=== PATIENT | female | born 1995 ===

== ENCOUNTER 2017-03-07 20:07 | Emergency (ER) | payer SELFPAY ==
[2017-03-07 20:24] VITALS: BMI 23.4
[2017-03-07 20:36] VITALS: BP 112/64; PULSE 94; RESP 18; TEMP 97.9; O2SAT 100
[2017-03-07] MEDS ORDERED: Sodium Chloride 0.9% 1,000 ML IV STA (20:54)
--- NOTE | 2017-03-07 21:15 | ED PDOC ---
Arrival/HPI - General Chief Complaint: Abdominal Pain Time Seen by Provider: 03/07/17 20:54 Historian: Patient, EMS - History of Present Illness Narrative History of Present Illness (Text): 03/07/17 21:12 Time/Duration: Other Symptom Onset: Gradual Symptom Course: Unchanged Activities at Onset: Light Context: Home Past Medical History - Provider Review Nursing Documentation Reviewed: Yes - Infectious Disease Hx of Infectious Diseases: None - Tetanus Immunization Tetanus Immunization: Unknown - Psychiatric Hx Substance Use: No - Anesthesia Hx Anesthesia: No Family/Social History - Physician Review Nursing Documentation Reviewed: Yes Family/Social History: No Known Family HX Smoking Status: Never Smoked Hx Alcohol Use: No Hx Substance Use: No Allergies/Home Meds Allergies/Adverse Reactions: Allergies No Known Allergies Allergy (Verified 10/04/16 12:46) Home Medications: Home Meds Medication Instructions Recorded Confirmed No Known Home Med 03/07/17 03/07/17 Review of Systems - Physician Review All systems were reviewed & negative as marked: Yes - Review of Systems Constitutional: absent: Fevers, Other (Chills) Respiratory: SOB Gastrointestinal: Abdominal Pain (lower abdominal pain), Nausea Genitourinary Female: Vaginal Bleeding Musculoskeletal: absent: Back Pain, Neck Pain Neurological: absent: Headache, Dizziness Physical Exam Vital Signs Reviewed: Yes Vital Signs Temp Pulse Resp BP Pulse Ox 03/07/17 20:33 97.9 F 94 H 18 112/64 100 Temperature: Afebrile Blood Pressure: Normal Pulse: Regular Respiratory Rate: Normal Appearance: Positive for: Well-Appearing, Non-Toxic, Comfortable Pain Distress: None Mental Status: Positive for: Alert and Oriented X 3 - Systems Exam Head: Present: Atraumatic, Normocephalic Pupils: Present: PERRL Extroacular Muscles: Present: EOMI Conjunctiva: Present: Normal Mouth: Present: Moist Mucous Membranes Neck: Present: Normal Range of Motion Respiratory/Chest: Present: Clear to Auscultation, Good Air Exchange. No: Respiratory Distress, Accessory Muscle Use Cardiovascular: Present: Regular Rate and Rhythm, Normal S1, S2. No: Murmurs Abdomen: Present: Normal Bowel Sounds. No: Tenderness, Distention, Peritoneal Signs Genitourinary/Pelvic Exam: Present: Vaginal Bleeding, Other (Unable to view cervix due to bleeding) Upper Extremity: Present: Normal Inspection. No: Cyanosis, Edema Lower Extremity: Present: Normal Inspection Neurological: Present: GCS=15, CN II-XII Intact, Speech Normal Skin: Present: Warm, Dry, Normal Color. No: Rashes Psychiatric: Present: Alert, Oriented x 3, Normal Insight, Normal Concentration Medical Decision Making ED Course and Treatment: 03/07/17 21:13 Impression: Differential Diagnosis included but are not limited to: Plan: -- Reassess and disposition Prior Visits: Notes and results from previous visits were reviewed. On // patient came in complaining of . Patient was discharged * with prescription of . Progress Notes: - RAD Interpretation Radiology Orders: 03/07/17 20:54 TRANSVAGINAL [US] Stat - Medication Orders Current Medication Orders: Sodium Chloride (Sodium Chloride 0.9%) 1,000 mls @ 1,000 mls/hr IV .Q1H STA Stop: 03/07/17 21:53 Discontinued Medications Ketorolac Tromethamine (Toradol) 30 mg IVP STAT STA Stop: 03/07/17 20:57 Disposition/Present on Arrival - Present on Arrival History of DVT/PE: No History of Uncontrolled Diabetes: No Urinary Catheter: No History of Decub. Ulcer: No History Surgical Site Infection Following: None - Disposition
[2017-03-07 21:19] LABS: BASO # 0.02 K/mm3 (0.0-2.0); BASO % 0.3 % (0.0-3.0); EOS # 0.1 (0.0-0.7); GRAN % 62.5 % (50.0-68.0); HEMATOCRIT 35.2 % (36.0-48.0); LYMPH # 2.3 (1.2-3.4); LYMPH % 29.1 % (22.0-35.0); MEAN CELL VOLUME 84.6 fl (80.0-105.0); MEAN CORPUSCULAR HEMOGLOBIN 27.9 pg (25.0-35.0); MEAN PLATELET VOLUME 9.8 fl (7.0-11.0); MONO # 0.6 (0.1-0.6); MONO % 7.1 % (1.0-6.0); RED CELL DISTRIBUTION WIDTH 14.6 % (11.5-14.5)
--- NOTE | 2017-03-07 21:26 | ED PDOC ---
Arrival/HPI - General Chief Complaint: Abdominal Pain Time Seen by Provider: 03/07/17 20:54 Historian: Patient, EMS - History of Present Illness Narrative History of Present Illness (Text): 03/07/17 21:23 21 year old female presents to the emergency department complaining of heavy menstrual bleeding and intermittent lower abdominal pain that began 4 days ago. Patient states she had a normal period during January, but it was intermittent for the whole month. She stated it eventually stopped, but it started up again 4 days ago. She reports heavy bleeding and using up to 8 pads a day and states to never had this before. Patient denies ever being on OCPS and also denies being sexually active. She also reports intermitted lower abdominal pain and nausea, but denies any fever, chills, vomiting, diarrhea, urinary symptoms, back pain, neck pain, headache, dizziness, or any other complaints. Time/Duration: Other (4 days) Symptom Onset: Gradual Symptom Course: Unchanged Activities at Onset: Light Context: Home Past Medical History - Provider Review Nursing Documentation Reviewed: Yes - Infectious Disease Hx of Infectious Diseases: None - Tetanus Immunization Tetanus Immunization: Unknown - Psychiatric Hx Substance Use: No - Anesthesia Hx Anesthesia: No Family/Social History - Physician Review Nursing Documentation Reviewed: Yes Family/Social History: No Known Family HX Smoking Status: Never Smoked Hx Alcohol Use: No Hx Substance Use: No Allergies/Home Meds Allergies/Adverse Reactions: Allergies No Known Allergies Allergy (Verified 10/04/16 12:46) Review of Systems - Physician Review All systems were reviewed & negative as marked: Yes - Review of Systems Constitutional: absent: Fevers, Other (Chills) Gastrointestinal: Abdominal Pain, Nausea. absent: Diarrhea, Vomiting Genitourinary Female: Vaginal Bleeding. absent: Dysuria, Frequency, Hematuria Musculoskeletal: absent: Back Pain, Neck Pain Neurological: absent: Headache, Dizziness Physical Exam Vital Signs Reviewed: Yes Vital Signs Temp Pulse Resp BP Pulse Ox 03/07/17 20:33 97.9 F 94 H 18 112/64 100 Temperature: Afebrile Blood Pressure: Normal Pulse: Regular Respiratory Rate: Normal Appearance: Positive for: Well-Appearing, Non-Toxic, Comfortable Pain Distress: None Mental Status: Positive for: Alert and Oriented X 3 - Systems Exam Head: Present: Atraumatic, Normocephalic Pupils: Present: PERRL Extroacular Muscles: Present: EOMI Conjunctiva: Present: Normal Mouth: Present: Moist Mucous Membranes Neck: Present: Normal Range of Motion Respiratory/Chest: Present: Clear to Auscultation, Good Air Exchange. No: Respiratory Distress, Accessory Muscle Use Cardiovascular: Present: Regular Rate and Rhythm, Normal S1, S2. No: Murmurs Abdomen: Present: Normal Bowel Sounds. No: Tenderness, Distention, Peritoneal Signs Genitourinary/Pelvic Exam: Present: Normal External Genitalia, Vaginal Bleeding , Other (Unable to visualize the cervix due to bleeding. Female EMT was present during the entire exam. ) Back: Present: Normal Inspection Upper Extremity: Present: Normal Inspection. No: Cyanosis, Edema Lower Extremity: Present: Normal Inspection. No: Edema Neurological: Present: GCS=15, CN II-XII Intact, Speech Normal Skin: Present: Warm, Dry, Normal Color. No: Rashes Psychiatric: Present: Alert, Oriented x 3, Normal Insight, Normal Concentration Medical Decision Making ED Course and Treatment: 03/07/17 21:23 Impression: 21 year old presents complaining of heavy menstrual bleeding and intermitted abdominal pain that began 4 days ago. Plan: -- Labs -- Toradol -- IV Fluids -- Urine test -- Ultrasound -- Reassess and disposition Progress Notes: Lab results reviewed, hemoglobin is 11.6, rest of the labs are within normal limits. US still pending at this time. Patient went to US. Patient returned from US without any incident. On reevaluation, patient is laying in bed comfortably in no acute distress. On exam, abdomen remains soft with no tenderness, no rebound, no guarding. US results reviewed and all diagnostic results d/w the patient. Patient notified of likely dx of DUB, advised that she must follow up with bacteriologist fishery referral provided in 1-2 days without fail. Advised to take medication as prescribed. Return to the emergency room at any time for any new or worsening symptoms. Patient states she fully agrees with and understands discharge instructions. States that she agrees with the plan and disposition. Verbalized and repeated discharge instructions and plan. I have given the patient opportunity to ask any additional questions. - Lab Interpretations Lab Results: 03/07/17 21:10 03/07/17 21:10 Lab Results 03/07/17 21:10: Sodium 143, Potassium 3.7, Chloride 105, Carbon Dioxide 26, Anion Gap 16, BUN 12, Creatinine 0.6, Est GFR ( Amer) > 60, Est GFR (Non- Af Amer) > 60, Random Glucose 102, Calcium 9.4, Total Bilirubin 0.4, AST 23, ALT 25, Alkaline Phosphatase 65, Total Protein 7.8, Albumin 4.6, Globulin 3.2, Albumin/Globulin Ratio 1.4 03/07/17 21:10: WBC 8.0 D, RBC 4.16, Hgb 11.6 L, Hct 35.2 L, MCV 84.6, MCH 27.9 , MCHC 33.0, RDW 14.6 H, Plt Count 283, MPV 9.8, Gran % 62.5, Lymph % (Auto) 29.1, [place] % (Auto) 7.1 H, Eos % (Auto) 1.0 L, Baso % (Auto) 0.3, Gran # 5.00, Lymph # 2.3, [place] # 0.6, Eos # 0.1, Baso # 0.02 I have reviewed the lab results: Yes - RAD Interpretation Narrative RAD Interpretations (Text): 03/07/17 23:00 US Pelvis Complete : CLINICAL HISTORY: 21 years old, female; Pain; Pelvic pain; Additional info: Vaginal bleeding LMP TECHNIQUE: Real-time transabdominal pelvic ultrasound (complete) with image documentation. COMPARISON: There are no prior studies for comparison. FINDINGS: Uterus: Uterus measures approximately 7.1 x 3.6 x 5.3 cm. Endometrium is not visualized. Ovaries: Neither ovary was identified. Free fluid: There is no free fluid. Bladder: Bladder is incompletely distended which limits evaluation. IMPRESSION: Limited transabdominal pelvic ultrasound, normal-sized uterus EXAM: US Transvaginal : FINDINGS: Uterus/cervix: Uterus measures approximately 7 x 3 x 4 cm. Endometrium measures 4.5 mm in width. Texture of the myometrium is uniform. Right ovary: Right ovary measures 4.1 x 3.1 x 3.4 cm. There are multiple follicles in the right ovary. There is a dominant follicle/corpus luteum in the right ovary.There is expected blood flow on Doppler imaging Left ovary: Left ovary measures 3.5 x 2.7 x 2.9 cm. There are multiple small follicles. There is intraovarian blood flow. Free fluid: There is a small amount of fluid in the cul-de-sac. Bladder: Not evaluated IMPRESSION: Normal transvaginal pelvic ultrasound Dictated and Authenticated by: Gladys Castillo MD 03/07/2017 11:12 PM Eastern Time (US & [place]) Radiology Orders: 03/07/17 20:54 TRANSVAGINAL [US] Stat - Medication Orders Current Medication Orders: Discontinued Medications Sodium Chloride (Sodium Chloride 0.9%) 1,000 mls @ 1,000 mls/hr IV .Q1H STA Stop: 03/07/17 21:53 Last Admin: 03/07/17 21:16 Dose: 1,000 mls/hr eMAR Start Stop Document 03/07/17 21:16 IT (Rec: 03/07/17 21:16 IT [id number]) Intravenous Solution Start Date 03/07/17 Start Time 21:16 End Date 03/07/17 End time 22:16 Total Infusion Time 60 Ketorolac Tromethamine (Toradol) 30 mg IVP STAT STA Stop: 03/07/17 20:57 Last Admin: 03/07/17 21:15 Dose: 30 mg MAR Pain Assessment Document 03/07/17 21:15 IT (Rec: 03/07/17 21:15 IT [id number]) Pain Reassessment Is this a pain reassessment? No Sleep Is patient sleeping during reassessment? No Presence of Pain Presence of Pain Yes Pain Scale Used Pain Scale Used Numeric Location Left, Right or Bilateral Bilateral Upper or Lower Lower Pain Location Body Site Abdomen Description Description Intermittent Intensity of Pain at present 8 IVP Administration Document 03/07/17 21:15 IT (Rec: 03/07/17 21:15 IT [id number]) Charges for Administration # of IVP Administrations 1 - Scribe Statement The provider has reviewed the documentation as recorded by the Scribe Nora Martinez All medical record entries made by the Scribe were at my direction and personally dictated by me. I have reviewed the chart and agree that the record accurately reflects my personal performance of the history, physical exam, medical decision making, and the department course for this patient. I have also personally directed, reviewed, and agree with the discharge instructions and disposition. Disposition/Present on Arrival - Present on Arrival Any Indicators Present on Arrival: No History of DVT/PE: No History of Uncontrolled Diabetes: No Urinary Catheter: No History of Decub. Ulcer: No History Surgical Site Infection Following: None - Disposition Have Diagnosis and Disposition been Completed?: Yes Diagnosis: DUB (dysfunctional uterine bleeding) Disposition: HOME/ ROUTINE Disposition Time: 23:16 Patient Plan: Discharge Patient Problems: Current Active Problems Problem Status Onset DUB (dysfunctional uterine bleeding) Acute Condition: STABLE Discharge Instructions (ExitCare): Dysfunctional Uterine Bleeding (ED) Print Language: CHINESE Additional Instructions: Thank you for letting us take care of you today. You were treated for DUB. The emergency medical care you received today was directed at your acute symptoms. If you were prescribed any medication, please fill it and take as directed. It may take several days for your symptoms to resolve. Return to the Emergency Department if your symptoms worsen, do not improve, or if you have any other problems. Please contact your doctor in 2 days for re-evaluation and follow up / or call one of the physicians/clinics you have been referred to that are listed on the Patient Visit Information form that is included in your discharge packet. Bring any paperwork you were given at discharge with you along with any medications you are taking to your follow up visit. Our treatment cannot replace ongoing medical care by a primary care provider (PCP) outside of the emergency department. Thank you for allowing the [facility] team to be part of your care today. Prescriptions: medroxyPROGESTERONEone Acetate [Provera] 5 mg PO DAILY #5 tab Referrals: Astrid Mercer MD [Medical Doctor] - Follow up with primary Forms: [employer] (Palestinian), WORK NOTE
[2017-03-07 21:28] LABS: ALB/GLOB RATIO 1.4 (1.1-1.8); ALKALINE PHOSPHATASE 65 U/L (38-126); ALT/SGPT 25 U/L (7-56); AST/SGOT 23 U/L (14-36); BILIRUBIN,TOTAL 0.4 mg/dL (0.2-1.3); BLOOD UREA NITROGEN 12 mg/dL (7-21); CALCIUM 9.4 mg/dL (8.4-10.5); CARBON DIOXIDE 26 mmol/L (21-33); CHLORIDE 105 mmol/L (98-107); GFR AFRICAN-AMERICAN > 60; GLUCOSE,RANDOM 102 mg/dL (70-110); POTASSIUM 3.7 mmol/L (3.6-5.0); SODIUM 143 mmol/L (132-148); TOTAL PROTEIN 7.8 g/dL (5.8-8.3)
--- NOTE | 2017-03-07 23:12 | US ---
EXAM: US Pelvis Complete, Transabdominal CLINICAL HISTORY: 21 years old, female; Pain; Pelvic pain; Additional info: Vaginal bleeding LMP 03/03/17 TECHNIQUE: Real-time transabdominal pelvic ultrasound (complete) with image documentation. COMPARISON: There are no prior studies for comparison. FINDINGS: Uterus: Uterus measures approximately 7.1 x 3.6 x 5.3 cm. Endometrium is not visualized. Ovaries: Neither ovary was identified. Free fluid: There is no free fluid. Bladder: Bladder is incompletely distended which limits evaluation. IMPRESSION: Limited transabdominal pelvic ultrasound, normal-sized uterus EXAM: US Pelvis, Transvaginal EXAM DATE/TIME: 03/07/2017 8:54 PM CLINICAL HISTORY: 21 years old, female; Pain; Pelvic pain; Additional info: Vaginal bleeding LMP 03/03/70 TECHNIQUE: Real-time transvaginal pelvic ultrasound (complete) with image documentation. Transvaginal imaging was used for better evaluation of the endometrium and adnexa. COMPARISON: There are no prior studies for comparison. FINDINGS: Uterus/cervix: Uterus measures approximately 7 x 3 x 4 cm. Endometrium measures 4.5 mm in width. Texture of the myometrium is uniform. Right ovary: Right ovary measures 4.1 x 3.1 x 3.4 cm. There are multiple follicles in the right ovary. There is a dominant follicle/corpus luteum in the right ovary.There is expected blood flow on Doppler imaging Left ovary: Left ovary measures 3.5 x 2.7 x 2.9 cm. There are multiple small follicles. There is intraovarian blood flow. Free fluid: There is a small amount of fluid in the cul-de-sac. Bladder: Not evaluated IMPRESSION: Normal transvaginal pelvic ultrasound
== END 2017-03-07 23:51 | disposition home or self-care (01) ==
LOC: ED 20:07
DX: N93.8 Other specified abnormal uterine and vaginal bleeding (principal)
CPT/HCPCS: 76830; 80053; 85025; 96361; 96374; 99283; J1885; J7040